=== PATIENT | female | born 1970 ===

== ENCOUNTER 2022-09-27 06:22 | Day surgery (SDC) | payer OTHER ==
[~2022-09-27] VITALS: Ht 149.9 cm; Wt 60.8 kg
[~2022-09-27 06:22] MED LIST: METFORMIN HCL500 M3 PO; SIMVASTATIN10 MG PO
== END 2022-09-27 18:00 | disposition home or self-care (01) ==
LOC: CIR.AMB 06:22
PROVIDERS: ATTEND Surgery Surgery of the Hand
DX: M65.841 Other synovitis and tenosynovitis, right hand (principal); M67.843 Other specified disorders of tendon, right hand; Z20.822 Contact with and (suspected) exposure to COVID-19; E11.9 Type 2 diabetes mellitus without complications

== ENCOUNTER 2023-07-11 06:23 | Day surgery (SDC) | payer OTHER ==
[~2023-07-11] VITALS: Ht 149.9 cm; Wt 61.7 kg
== END 2023-07-11 14:50 | disposition home or self-care (01) ==
LOC: CIR.AMB 06:23
PROVIDERS: ATTEND Surgery Surgery of the Hand
DX: M67.844 Other specified disorders of tendon, left hand (principal); G56.02 Carpal tunnel syndrome, left upper limb; Z20.822 Contact with and (suspected) exposure to COVID-19

== ENCOUNTER 2025-07-22 10:00 | Day surgery (SDC) | payer OTHER ==
[2025-07-17 13:15] VITALS: BP 140/89
[~2025-07-22] VITALS: Ht 149.9 cm; Wt 63.5 kg
[2025-07-22] MEDS ORDERED: CEFAZOLIN SODIUM 1,000 MG VIAL ONE (11:02)
== END 2025-07-22 14:25 | disposition home or self-care (01) ==
LOC: CIR.AMB 10:00
PROVIDERS: ATTEND Surgery Surgery of the Hand
DX: M67.843 Other specified disorders of tendon, right hand (principal); Z88.8 Allergy status to other drugs, medicaments and biological substances